=== PATIENT | female | born 1960 | race Caucasian/White ===

== ENCOUNTER 2016-07-13 08:32 | Inpatient (IN) | payer MEDICAID ==
[~2016-07-13 08:32] MED LIST: Bupivacaine 0.5%/EPINEPHrine 1:200,000 50 ML MDV ONE; Meropenem 500 MG SDV ONE
[2016-07-13] MEDS ORDERED: Naloxone 0.4 MG/ML SDV IVPUSH PRN (08:45)
[2016-07-13] MEDS ORDERED: Morphine PF 150 MG/30 ML PCA Syringe IV PRN (08:45)
[2016-07-13] MEDS ORDERED: fentaNYL 25 MCG/HR Transdermal Patch TRDERM ONE (09:15)
[2016-07-13] MEDS ORDERED: Dextrose 5%-Lactated Ringers 1,000 ML IV SCH (09:15)
[2016-07-13] MEDS: fentaNYL 25 MCG/HR Transdermal Patch TRDERM SCH (10:10)
[2016-07-13] MEDS ORDERED: ceFAZolin 2 GM in Sodium Chloride 0.9% 50 ML IV ONE (10:45)
[2016-07-13] MEDS ORDERED: ceFAZolin 2 GM in Premix Bag 1 BAG IV ONE (10:45)
[2016-07-13] MEDS ORDERED: Neostigmine Methylsulfate 1 MG/ML 5 ML Syringe ONE (11:53)
[2016-07-13] MEDS ORDERED: Propofol 200 MG/20 ML SDV ONE (11:53)
[2016-07-13] MEDS ORDERED: Dexamethasone 4 MG/ML SDV ONE (11:53)
[2016-07-13] MEDS ORDERED: Rocuronium 50 MG/5 ML Vial ONE ×2 (11:53→12:51)
[2016-07-13] MEDS ORDERED: Ondansetron 4 MG/2 ML SDV ONE (11:53)
[2016-07-13] MEDS ORDERED: fentaNYL 250 MCG/5 ML SDV ONE ×2 (11:53→14:18)
[2016-07-13] MEDS ORDERED: Linezolid 200 MG/100 ML Bag IV ONE (14:04)
[2016-07-13] MEDS ORDERED: Ondansetron 4 MG/2 ML SDV IV PRN (15:47)
[2016-07-13] MEDS ORDERED: Cyclobenzaprine 10 MG Tab PO PRN (15:48)
[2016-07-13] MEDS: CHECK FENTANYL PATCH TOP SCH ×2 (17:02→22:01)
[2016-07-13] MEDS: Dextrose 5%-Lactated Ringers 1,000 ML IV SCH (20:17)
[2016-07-13] MEDS: ceFAZolin 2 GM in Sodium Chloride 0.9% 50 ML IV SCH (20:19)
[2016-07-13] MEDS: buPROPion 100 MG Tab.SR PO SCH (22:02)
[2016-07-13] MEDS: Acetaminophen 500 MG Tab PO SCH (22:03)
[2016-07-13] MEDS: Sertraline 50 MG Tab PO SCH (22:03)
[2016-07-14] MEDS: ceFAZolin 2 GM in Sodium Chloride 0.9% 50 ML IV SCH ×2 (03:15→13:06)
[2016-07-14] MEDS: Dextrose 5%-Lactated Ringers 1,000 ML IV SCH ×3 (03:18→20:51)
[2016-07-14] MEDS ORDERED: CHECK FENTANYL PATCH DAILY TOP SCH (09:00)
[2016-07-14] MEDS: CHECK FENTANYL PATCH TOP SCH ×2 (09:56→20:56)
[2016-07-14] MEDS: Sertraline 50 MG Tab PO SCH ×2 (10:13→20:58)
[2016-07-14] MEDS: buPROPion 100 MG Tab.SR PO SCH ×2 (10:13→20:58)
[2016-07-14] MEDS: Acetaminophen/HYDROcodone 325-5 MG Tab PO PRN ×3 (10:13→19:55)
[2016-07-14] MEDS: Acetaminophen 500 MG Tab PO SCH ×3 (10:16→20:57)
--- NOTE | 2016-07-14 17:55 | PN ---
DATE OF SERVICE: 07/14/2016 SUBJECTIVE: Heather is postop day #1. She states her pain is controlled. She has been up ambulating. She has no questions or concerns. OBJECTIVE: GENERAL: Heather Small is a 56-year-old female. VITAL SIGNS: TPR is 98.2, 67, 16, and blood pressure 115/55. HEENT: Negative. NECK: Supple. HEART: Regular rate and rhythm. LUNGS: Clear. ABDOMEN: Dressings dry and intact. Abdominal binder is on. EXTREMITIES: Without peripheral edema. ASSESSMENT: Laparoscopic repair of incarcerated incisional hernia with mesh; size of mesh is 25 x 30 inches for recurrent incarcerated incisional hernia. PLAN: 1. Discontinue Cotto catheter. 2. Step 4 gastric bypass diet. 3. Discontinue GALLEY HAND and continuous pulse ox. 4. Decrease IV to 100 mL per hour. 5. [place] 5/325 mg 1 to 2 every 4 hours p.r.n. pain. 6. Good pulmonary toilet encouraged. 7. We will evaluate p.r.n. or in a.m. Carmelina Ann PA-C /[id number]
[2016-07-15] MEDS: Acetaminophen/HYDROcodone 325-5 MG Tab PO PRN ×2 (02:46→09:34)
[2016-07-15 07:09] VITALS: BP 119/63
--- NOTE | 2016-07-15 08:16 | DISCH ---
ADMISSION DIAGNOSES: Recurrent incarcerated incisional hernia, abdomen; anxiety; depression; SP Dionisio-en-Y gastric bypass surgery; B12 deficiency; history of diabetes mellitus type 2; hypercholesterolemia; hypertension; joint pain; steatosis of the liver; granulosa cell carcinoma of the ovary, unspecified; vitamin D deficiency; postoperative malabsorption. DISCHARGE DIAGNOSES: Diagnostic laparoscopy with lysis of adhesions, repair of recurrent incarcerated hernia with mesh, repair of recurrent epigastric hernia with mesh, and placement of Vicryl mesh for incarcerated recurrent incisional hernia, separate incarcerated epigastric hernia and extensive intraabdominal adhesions on 07/13/2016. HISTORY: Heather Small is a 56-year-old female with recurrent incarcerated incisional hernia. After preoperative evaluation and discussion of possible risks and possible complications, she wished to proceed with surgical procedure. HOSPITAL COURSE: Heather had her surgery on 07/13/2016. She had no operative complications. On postop day #1, she was started on a step-4 gastric bypass diet, oral pain medication. Her activity was good. Her pain was well managed. Vital signs remained stable. On postop day #2, she was able to be discharged to home. PHYSICAL EXAMINATION: GENERAL: Heather Small is a 56-year-old female. Height is 5 feet 3 inches. Weight is 157 pounds. VITAL SIGNS: TPR is 95, 73, 16, blood pressure is 119/63. HEENT: Negative. NECK: Supple. HEART: Regular rate and rhythm. LUNGS: Clear. ABDOMEN: Incision looks good. She does have 2 Kerlix rolls over the site of the hernia. Abdominal binder has been on. EXTREMITIES: Without peripheral edema. DISPOSITION: Discharged to home. CONDITION: Stable and improving. FOLLOWUP: Followup appointment with Jimi Ribera MD at [facility] on 07/21/2016 at 9:15 a.m. MEDICATIONS: New prescriptions are: 1. [place] 5/325 of 1 to 2 oral q.4 hours p.r.n. pain #50. 2. Fentanyl Duragesic patch 25 mcg to remove on 07/19/2016. 3. To resume home medication of extra-strength Tylenol 1000 mg 4 times a day p.r.n. pain, aspirin chewable 81 mg daily, atorvastatin 10 mg oral daily, calcium 600 mg twice daily, centrum Awais 30 mg oral twice daily, vitamin D3 4000 international units daily, Robitussin AC 8 to 10 mL every 4 hours, B12 of 25 mcg sublingual daily, ferrous fumarate 324 mg oral daily, glucosamine sulfate 500 mg oral daily, melatonin 10 mg oral at bedtime, sertraline/Zoloft 100 mg oral daily, vitamin B complex once each twice daily, bupropion 200 mg oral twice daily. DIET AFTER DISCHARGE: Step-4 gastric bypass diet. Drink 8 to 10 glasses of water a day. ACTIVITY: Lifting, no lifting greater than 10 pounds for 6 weeks. Driving, do not drive on pain medication, may shower. Notify provider if any fever, increased pain, swelling, redness, drainage, nausea, or vomiting. Wound incision care. Keep site clean and dry. Wound care is wear abdominal binder with pressure dressing over hernia site. Two rolls of fresh cloths for 6 weeks and then as needed. Use incentive spirometer 10 times every hour while awake for 2 weeks. No swimming until okay with Dr. Ribera, at least 8 weeks.
[2016-07-15] MEDS ORDERED: fentaNYL 25 MCG/HR Transdermal Patch TRDERM SCH (09:00)
[2016-07-15] MEDS: fentaNYL 25 MCG/HR Transdermal Patch TRDERM SCH (09:30)
[2016-07-15] MEDS: Sertraline 50 MG Tab PO SCH (09:31)
[2016-07-15] MEDS: Acetaminophen 500 MG Tab PO SCH (09:31)
[2016-07-15] MEDS: buPROPion 100 MG Tab.SR PO SCH (09:31)
[2016-07-15] MEDS: CHECK FENTANYL PATCH TOP SCH (09:31)
--- NOTE | 2016-07-23 10:00 | OR ---
DATE OF PROCEDURE: 07/13/2016 PREOPERATIVE DIAGNOSIS: Incarcerated recurrent incisional hernia. POSTOPERATIVE DIAGNOSES: 1. Incarcerated recurrent incisional hernia. 2. Separate incarcerated epigastric hernia. 3. Extensive intraabdominal adhesions. OPERATIVE PROCEDURE: 1. Diagnostic laparoscopy with lysis of adhesions. a. Repair of incarcerated recurrent incisional hernia with mesh (47779). b. Repair of incarcerated epigastric hernia with mesh (40194). c. Placement of Vicryl mesh to displace small bowel and other viscera from pelvic abdominal wall to limit recurrent adhesion formation (63050). ANESTHESIA: General. INDICATION FOR PROCEDURE: This is a 56-year-old female presenting with recurrent incarcerated incisional hernia. This was a broad hernia across the center of the abdomen. Plan is to proceed with laparoscopic or if necessary open repair. Potential risks including bleeding, infection, injury to underlying viscera, possibility of the hernia recurring as well as possibility of cardiopulmonary, septic, or hemorrhagic complications leading to were discussed, and the patient wishes to proceed. DETAILS OF PROCEDURE: The patient was taken to the operating room. After general endotracheal anesthesia was induced, a Cotto catheter was inserted and the abdomen prepped. Beginning in the left lateral mid abdomen, a transverse incision was made and the peritoneal cavity entered under direct vision with an Optiview trocar, inflated to 15 mmHg pressure with CO2. The laparoscope was then reinserted. No underlying trocar insertion site injuries were seen. Following this, eventually four additional 5 mm trocar was placed across the upper abdomen and then to the right lateral abdominal wall. The patient was noted to have quite extensive adhesions. These were eventually taken down with means of a Harmonic scalpel as well as some sharp dissection. There was some incarcerated omentum within the hernia, which was taken down as part of the process. The patient was noted to have a separate epigastric hernia that had some of the falciform ligament as well as omentum incarcerated within it as well. This area was likewise reduced and the falciform ligament divided and from the abdominal wall. Once these adhesions were completed, the decision was made to proceed with the mesh repair. It was notable that on each side of the larger incisional hernia, there was some mesh in the abdominal wall. Given this using 0- Ethibond sutures and the tie knot device this defect was initially closed with interrupted sutures. This was closed tight enough that the fascia was opposed to the edges on the opposite sides of the hernia, but not so much that it would not allow drainage of fluid out of the overlying hernia sac. Once this phase had been completed, a Ventralight ST hernia mesh with the balloon positioning system was selected. This was a 25 x 30 cm oval segment. At the 2 ends of the long axis of the mesh, 2-0 Vicryl sutures were placed. The mesh was then placed with antibiotic-containing saline solution. This was then rolled up and taken out through the 12 mm trocar site and into the peritoneal cavity. At the two locations at the far ends of the mesh which had been premarked the sutures were pulled up, thus fixing the mesh in general orientation, the long axis in the vertical midline providing the best coverage of those hernias. The balloon catheter was then also pulled up through a separate stab wound and the balloon then inflated up against the abdominal wall. Using the AbsorbaTack, multiple tacks were then placed circumferentially around the mesh to the abdominal wall and then also multiple tacks placed across the center of the mesh as well. This appeared to satisfactorily repair the area of concern and the balloon catheter was then deflated and withdrawn. To limit recurrent adhesion formation, the 12- inch segment of Vicryl mesh was then placed across the abdomen and from there into the pelvic area to limit recurrent adhesion formation between the viscera and the abdominal pelvic wall with no further problems noted. The trocars were removed. The fascia at the 12 mm site was closed with 0 Vicryl stitch and the skin with 4-0 Vicryl skin stitch. Dressing was applied. The patient was taken to the recovery room in satisfactory condition. Jimi Ribera MD /[id number]
== END 2016-07-15 11:35 | disposition home or self-care (01) | DRG 354 ==
LOC: JP.SDSSCHI 08:32 → JP.SDS 08:32 → EDSTATUS 10:15 → JP.2SS 15:34
PROVIDERS: ADMIT Surgery; ATTEND Surgery
PROC: 3E0M05Z Introduction of Adhesion Barrier into Peritoneal Cavity, Open Approach (ICD-10-PCS; principal; 2016-07-13)
PROC: 0WUF4JZ Supplement Abdominal Wall with Synthetic Substitute, Percutaneous Endoscopic Approach (ICD-10-PCS; principal; 2016-07-13)
DX: K43.0 Incisional hernia with obstruction, without gangrene (principal); K91.2 Postsurgical malabsorption, not elsewhere classified; K43.6 Other and unspecified ventral hernia with obstruction, without gangrene; Z98.84 Bariatric surgery status; Z98.0 Intestinal bypass and anastomosis status; F32.9 Major depressive disorder, single episode, unspecified; F41.9 Anxiety disorder, unspecified; E53.8 Deficiency of other specified B group vitamins; Z86.39 Personal history of other endocrine, nutritional and metabolic disease; E78.00 Pure hypercholesterolemia, unspecified; I10 Essential (primary) hypertension; M25.50 Pain in unspecified joint; K76.0 Fatty (change of) liver, not elsewhere classified; Z85.43 Personal history of malignant neoplasm of ovary; E55.9 Vitamin D deficiency, unspecified; K66.0 Peritoneal adhesions (postprocedural) (postinfection)
CPT/HCPCS: 94762; A9270-GY; C1781; J0690; J1100; J2020; J2185; J2270; J2405; J2704; J3010; J7040; J7042; J7050

== ENCOUNTER 2019-04-12 10:20 | Day surgery (SDC) | payer BC, OTHER ==
[~2019-04-12 10:20] MED LIST changes: -Bupivacaine 0.5%/EPINEPHrine 1:200,000 50 ML MDV ONE; -Meropenem 500 MG SDV ONE; +Midazolam 1 MG/ML 2 ML SDV ONE; +Propofol 200 MG/20 ML SDV ONE; +fentaNYL 100 MCG/2 ML SDV ONE
[2019-04-12] MEDS ORDERED: Sodium Chloride 0.9% 1,000 ML IV SCH (11:00)
[2019-04-12 13:19] VITALS: BP 101/66; PULSE 49
--- NOTE | 2019-04-13 08:36 | OR ---
DATE OF PROCEDURE: 04/12/2019 SURGEON: Jonathan Sheridan MD PROCEDURE: Colonoscopy. FINDINGS: Sigmoid colon polyp, approximately 5 mm, completely removed using cold biopsy forceps. COMPLICATIONS: None. TRIM INSTALLER: None. ANESTHESIA: MAC. RISKS: Risks, benefits, alternatives, and limitations including, but not limited to infection, bleeding, and perforation were explained to the patient. PREOPERATIVE DIAGNOSIS: Screening colonoscopy. POSTOPERATIVE DIAGNOSIS: Screening colonoscopy. PROCEDURE IN DETAIL: The patient was placed in left lateral decubitus position. Digital rectal exam was performed without abnormality. The scope was introduced atraumatically to the ileocecal valve. The scope was brought back through the ascending, transverse, descending colon, and retroflexed. No evidence of old or new blood. No masses. The aforementioned polyps were identified and completely removed. No abnormalities on retroflexion. The patient tolerated the procedure well. Jonathan Sheridan MD /[id number]
== END 2019-04-12 13:35 | disposition home or self-care (01) ==
LOC: JP.SDS 10:20
PROVIDERS: ATTEND Surgery
DX: Z12.11 Encounter for screening for malignant neoplasm of colon (principal); K63.5 Polyp of colon; K90.9 Intestinal malabsorption, unspecified; E78.5 Hyperlipidemia, unspecified
CPT/HCPCS: 45380; J2250; J2704; J3010; J7030

== ENCOUNTER 2019-08-14 11:58 | Emergency (ER) | payer OTHER ==
[2019-08-14 12:23] VITALS: BP 123/65; PULSE 57
[2019-08-14] MEDS ORDERED: Ketorolac 30 MG/ML SDV IM ONE (12:51)
--- NOTE | 2019-08-14 12:56 | EDM.PDOC ---
ED HPI GENERAL MEDICAL PROBLEM - General Chief Complaint: Respiratory Problem Stated Complaint: BREATHING ISSUES Time Seen by Provider: 08/14/19 12:35 Source of Information: Reports: Patient, Old Records, RN History Limitations: Reports: No Limitations - History of Present Illness INITIAL COMMENTS - FREE TEXT/NARRATIVE: 59 yo female nonsmoker presents with mild anterior chest discomfort worse with pressing on her chest. No SOB, cough, or fever. No new calf pain or LE edema. No self tx. Called the clinic and was told to come to the ER. Onset: Today Onset Date: 08/14/19 Duration: Hour(s):, Constant Location: Reports: Chest Quality: Reports: Dull Severity: Mild Improves with: Reports: None Worsens with: Reports: Other (pressing on chest wall) Context: Reports: Other (see HPI) Associated Symptoms: Reports: Chest Pain (chest wall). Denies: Cough, Diaphoresis, Fever/Chills, Shortness of Breath Treatments CARVER HAND: Reports: Other (see below) (none) Upper Chest Pain Score (Numeric/FACES): 1 - Related Data Allergies Allergy/AdvReac Type Severity Reaction Status Date / Time venom-honey bee Allergy Severe Anaphylactic Verified 08/14/19 12:16 [bee venom (honey bee)] Shock ceresin [From Eucerin] Allergy Hives Verified 08/14/19 12:16 emollient combination no.33 Allergy Hives Verified 08/14/19 12:16 [From Eucerin] hydromorphone Allergy Other Verified 08/14/19 12:16 isopropyl myristate Allergy Hives Verified 08/14/19 12:16 [From Eucerin] lanolin alcohols Allergy Hives Verified 08/14/19 12:16 [From Eucerin] mineral oil [From Eucerin] Allergy Hives Verified 08/14/19 12:16 petrolatum,white Allergy Hives Verified 08/14/19 12:16 [From Eucerin] soap [From Eucerin] Allergy Hives Verified 08/14/19 12:16 Sulfa (Sulfonamide Allergy Rash Verified 08/14/19 12:16 Antibiotics) water [From Eucerin] Allergy Hives Verified 08/14/19 12:16 bacitracin AdvReac Blisters Verified 08/14/19 12:16 niacin AdvReac Abdominal Verified 08/14/19 12:16 Pain Cfixvmc-Nlu-Blr Reductase AdvReac Muscle Verified 08/14/19 12:16 Inhibitor Weakness BLISTEX AdvReac Blisters Uncoded 08/14/19 12:16 CARMEX AdvReac Blisters Uncoded 08/14/19 12:16 Home Meds: Home Meds Sertraline [Zoloft] 100 mg PO BID 09/10/13 [History] Vitamin B Complex [B Complex] 1 each PO BID 09/10/13 [History] Acetaminophen [Tylenol Extra Strength] 1,000 mg PO QID PRN 06/22/14 [History] Ferrous Fumarate [Ferrocite] 324 mg PO Q48H 06/22/14 [History] Melatonin 10 mg PO BEDTIME 06/22/14 [History] Calcium 600 mg PO BID 09/03/15 [History] Centrum Jr/Extra Calcium 30 mg PO BID 07/09/16 [History] Cyanocobalamin (Vitamin B12) [Vitamin B12] 2,500 mcg SL DAILY 07/09/16 [History] Glucosamine [Glucosamine Sulfate] 500 mg PO DAILY 07/09/16 [History] Cholecalciferol (Vitamin D3) [Vitamin D3] 4,000 unit PO DAILY 07/13/16 [History] [place]-3 Fatty Acids [Maxepa] 2,000 mg PO DAILY 04/10/19 [History] Past Medical History HEENT History: Reports: Cataract, Impaired Vision Cardiovascular History: Reports: High Cholesterol, Hypertension Respiratory History: Reports: Bronchitis, Recurrent Other Respiratory History: persistent cough 2016 Gastrointestinal History: Reports: Bowel Obstruction Other Gastrointestinal History: elevated liver function Genitourinary History: Reports: None ASSISTANT CASINO SHIFT MANAGER History: Reports: Polycystic Ovaries, , Prolapsed Uterus, Spontaneous Other ASSISTANT CASINO SHIFT MANAGER History: ovarian CA Musculoskeletal History: Reports: Arthritis, Back Pain, Chronic, Fracture, Neck Pain, Chronic, Osteoarthritis Other Musculoskeletal History: right wrist Neurological History: Reports: Concussion, Seizure Psychiatric History: Reports: Anxiety, Depression, OCD, PTSD Endocrine/Metabolic History: Reports: Diabetes, Type II, Obesity/BMI 30+, Vitamin D Deficiency Other Endocrine/Metabolic History: no longer diabetic Hematologic History: Reports: Anemia, B12 Deficiency, Blood Transfusion(s), Iron Deficiency Oncologic (Cancer) History: Reports: Ovarian Dermatologic History: Reports: None - Infectious Disease History Infectious Disease History: Reports: Chicken Pox, Measles, Mumps - Past Surgical History Head Surgeries/Procedures: Reports: None HEENT Surgical History: Reports: Cataract Surgery, Oral Surgery Cardiovascular Surgical History: Reports: None Respiratory Surgical History: Reports: None GI Surgical History: Reports: Bariatric Procedure, Cholecystectomy, Colonoscopy , Hernia, Abdominal, Lysis of Adhesions, Small Bowel Female Surgical History: Reports: D&C, Hysterectomy Endocrine Surgical History: Reports: None Neurological Surgical History: Reports: None Musculoskeletal Surgical History: Reports: None Oncologic Surgical History: Reports: None Dermatological Surgical History: Reports: None Social & Family History - Family History Family Medical History: Noncontributory - Tobacco Use Smoking Status *Q: Never Smoker Second Hand Smoke Exposure: No - Caffeine Use Caffeine Use: Reports: None - Recreational Drug Use Recreational Drug Use: No - Living Situation & Occupation Living situation: Reports: , Alone ED ROS GENERAL - Review of Systems Review Of Systems: See Below Constitutional: Reports: No Symptoms HEENT: Reports: No Symptoms Respiratory: Reports: No Symptoms. Denies: Shortness of Breath, Wheezing, Pleuritic Chest Pain, Cough, Sputum, Hemoptysis Cardiovascular: Reports: Chest Pain (chest wall) GI/Abdominal: Reports: No Symptoms : Reports: No Symptoms Musculoskeletal: Reports: Other (chest wall tenderness) Skin: Reports: No Symptoms Neurological: Reports: No Symptoms ED EXAM, GENERAL - Physical Exam Exam: See Below Exam Limited By: No Limitations General Appearance: Alert, WD/WN, No Apparent Distress Eye Exam: Bilateral Eye: Normal Inspection Ears: Normal External Exam, Normal Canal, Hearing Grossly Normal Ear Exam: Bilateral Ear: Auricle Normal, Canal Normal Nose: Normal Inspection, No Blood Throat/Mouth: Normal Inspection, Normal Lips, Normal Oropharynx, Normal Voice, No Airway Compromise Head: Atraumatic, Normocephalic Neck: Normal Inspection Respiratory/Chest: No Respiratory Distress, Lungs Clear, Normal Breath Sounds, No Accessory Muscle Use, Other (anterior chest wall tenderness). No: Chest Non- Tender Cardiovascular: Regular Rate, Rhythm, No Edema GI/Abdominal: Normal Bowel Sounds, Soft, Non-Tender, No Distention Back Exam: Normal Inspection. No: CVA Tenderness (R), CVA Tenderness (L) Extremities: Normal Inspection, Normal Range of Motion, Non-Tender, No Pedal Edema Neurological: Alert, Oriented, CN II-XII Intact, Normal Cognition, No Motor/ Sensory Deficits Psychiatric: Normal Affect, Normal Mood Skin Exam: Warm, Dry, Intact, Normal Color, No Rash EKG INTERPRETATION EKG Date: 08/14/19 Time: 13:00 Rhythm: NSR Rate (Beats/Min): 52 [place]: Normal P-Wave: Present QRS: RBBB ST-T: Normal QT: Normal Comparison: NA - No Prior EKG Course - Vital Signs Last Recorded V/S: Last Vital Signs Temp 36.6 C 08/14/19 12:13 Pulse 57 L 08/14/19 12:13 Resp 16 08/14/19 12:13 BP 123/65 08/14/19 12:13 Pulse Ox 95 08/14/19 12:13 - Orders/Labs/Meds Orders: Active Orders 24 hr Category Date Time Status EKG Documentation Completion [RC] ASDIRECTED Care 08/14/19 12:51 Active EKG 12 Lead [EK] Routine Ther 08/14/19 12:51 Ordered Meds: Medications Discontinued Medications Generic Name Dose Route Start Last Admin Trade Name Freq PRN Reason Stop Dose Admin Ketorolac Tromethamine 30 mg 08/14/19 12:51 08/14/19 12:57 Toradol IM 08/14/19 12:52 30 mg ONETIME ONE Administration Departure - Departure Time of Disposition: 13:25 Disposition: Home, Self-Care 01 Condition: Good Clinical Impression: Chest wall pain - Discharge Information *PRESCRIPTION DRUG MONITORING PROGRAM REVIEWED*: No *COPY OF PRESCRIPTION DRUG MONITORING REPORT IN PATIENT TONY: No Instructions: Nonspecific Chest Pain, Adult, [id number] Referrals: PCP,None [Primary Care Provider] - Forms: ED Department Discharge Additional Instructions: Acetaminophen 1000 mg every 6 hrs as needed for a few days. Return for fever, shortness of breath, nausea, or radiation of the pain. Sepsis Event Note - Evaluation Sepsis Screening Result: No Definite Risk - Focused Exam Vital Signs: Vital Signs Temp Pulse Resp BP Pulse Ox 08/14/19 12:13 36.6 C 57 L 16 123/65 95 08/14/19 12:11 36.6 C 57 L 16 123/65 95 Date Exam was Performed: 08/14/19 Time Exam was Performed: 13:23 - My Orders Last 24 Hours: My Active Orders 08/14/19 12:51 EKG Documentation Completion [RC] ASDIRECTED EKG 12 Lead [EK] Routine - Assessment/Plan Last 24 Hours: My Active Orders 08/14/19 12:51 EKG Documentation Completion [RC] ASDIRECTED EKG 12 Lead [EK] Routine
== END 2019-08-14 13:39 | disposition home or self-care (01) ==
LOC: JP.ED 11:58
DX: R07.89 Other chest pain (principal); F41.9 Anxiety disorder, unspecified; F32.9 Major depressive disorder, single episode, unspecified; E11.9 Type 2 diabetes mellitus without complications; I10 Essential (primary) hypertension; E66.9 Obesity, unspecified; Z68.31 Body mass index [BMI] 31.0-31.9, adult; Z91.030 Bee allergy status; Z88.5 Allergy status to narcotic agent; Z88.2 Allergy status to sulfonamides; Z88.1 Allergy status to other antibiotic agents; Z88.8 Allergy status to other drugs, medicaments and biological substances
CPT/HCPCS: 93005; 96372; 99284; J1885

== ENCOUNTER → 2020-06-09 | Day surgery (SDC) | payer OTHER ==
[~2020-06-09] MED LIST changes: +Acetaminophen/HYDROcodone 325-5 MG Tab PO ONE; +Bupivacaine 0.5% 50 ML MDV ONE; +Dexamethasone 4 MG/ML SDV ONE; +Glycopyrrolate 0.2 MG/ML 5 ML MDV ONE; +Lactated Ringers 1,000 ML IV SCH; -Midazolam 1 MG/ML 2 ML SDV ONE; +Neostigmine Methylsulfate 1 MG/ML 5 ML Syringe ONE; +Ondansetron 4 MG/2 ML SDV ONE; +Rocuronium 50 MG/5 ML Vial ONE; +Succinylcholine 200 MG/10 ML MDV ONE; +ceFAZolin 2 GM in Premix Bag 1 BAG IV ONE; -fentaNYL 100 MCG/2 ML SDV ONE; +fentaNYL 250 MCG/5 ML SDV ONE
[2020-06-09 15:22] VITALS: PULSE 55
--- NOTE | 2020-06-09 15:25 | US ---
VL Duplex Lwr Ext Veins Ltd Rt INDICATION: r/o blood clot FINDINGS: Ultrasound examination of the right lower extremity using Doppler and compressive technique demonstrates that the common femoral, femoral, and popliteal veins are patent, and negative for thrombus. The calf veins were segmentally visualized and are negative where seen. IMPRESSION: Negative for deep venous thrombosis.
[2020-06-09 15:37] VITALS: BP 171/75
--- NOTE | 2020-06-09 19:24 | OR ---
DATE OF PROCEDURE: 06/09/2020 SURGEON: Sixto De La Torre DPM HOUSE REPAIRER: None. PREOPERATIVE DIAGNOSIS: Implant failure, right foot. POSTOPERATIVE DIAGNOSIS: Implant failure, right foot. PROCEDURE: Removal of tendon anchor that loosened with reattachment of tibialis posterior tendon to the distal talar head. ANESTHESIA: General. HEMOSTASIS: Obtained with an ankle tourniquet on the right ankle at 250 mmHg. ESTIMATED BLOOD LOSS: 5 mL. MATERIALS: One Spruceling 5.5 mm tendon anchor was used. INJECTABLES: A total of 10 mL of Marcaine 0.5% plain was injected at the end of the procedure. PATHOLOGY: None. CONDITION: Stable. INDICATIONS FOR SURGERY: Detached tibialis posterior tendon on the right foot from the navicular, status post flatfoot reconstruction, so we needed to reattach the tibialis posterior tendon to the medial side of the foot. PROCEDURE IN DETAIL: The patient was brought to the operating room, placed on the operating table in supine position. Following general anesthesia, the right leg was scrubbed, prepped, and draped in the usual aseptic manner and raised to 60 degrees for hemostasis and exsanguinated using Esmarch bandage. Tourniquet was inflated. Foot was lowered to the table. Skin incision was made on the medial aspect of the right foot through the incision that was made 2 weeks ago. Sutures were removed. Skin edges were opened and we carefully dissected through the incision down to the level of the tibialis posterior tendon which was identified. The old tendon anchor was identified and removed. We then performed a whipstitch into the distal aspect of the tibialis posterior tendon and then used a whipstitch to put tension on the tibialis posterior tendon to help stretch out the muscle belly of the tibialis posterior tendon, and then, we, through fluoroscopic guidance, identified the distal aspect of the talus. Since the navicular is a very small bone and since it is fused to the talus, instead, we will attach the tibialis posterior tendon to the plantar medial aspect of the talar head in order to reattach it. We placed our 5.5 mm tendon anchor into the talar head and then sutured the tibialis posterior tendon to it with 4 sutures that were attached to the tendon anchor. We then checked and made sure that the tendon anchor was properly seated prior to attaching the tendon and tagged the tendon down, and then we tied the tibialis posterior tendon down to the tendon anchor and moved to the foot and then the tendon moved, but did not detach the tendon anchor. The tibialis posterior tendon sheath was closed. The incision was flushed out with copious amounts of sterile saline. Subcutaneous closure was done with 3-0 Vicryl and skin closure with 3-0 nylon in a horizontal mattress configuration. Postoperative injection was given. The foot was dressed with Xeroform, 4 x 4s, and Kerlix, and prior to applying the posterior splint, a venous ultrasound of the right leg was performed to rule out blood clot because the patient had complained of some calf pain prior to surgery. The patient was then placed in a posterior splint on the right leg and returned to the recovery room with vital signs stable and vascular status intact to both feet. The patient was told to rest, ice, and elevate the right leg; maintain strict nonweightbearing on the right leg; and return to clinic with Dr. De La Torre in 1 week. Since there was a small amount of erythema around one of the incisions, we did prescribe Keflex 500 mg 1 tab p.o. t.i.d. x10 days, dispensed #30. The patient was told to go to the emergency room immediately if she had any nausea, vomiting, fever, chills, chest pain, calf pain, or difficulty breathing. The patient will follow up with Dr. De La Torre in 1 week. Sixto De La Torre DPM /[id number]
== END ==
LOC: JP.SDS 11:54
PROVIDERS: ATTEND Podiatrist Foot & Ankle Surgery
DX: T84.223A Displacement of internal fixation device of bones of foot and toes, initial encounter (principal); E11.9 Type 2 diabetes mellitus without complications; I10 Essential (primary) hypertension; E66.9 Obesity, unspecified; E53.8 Deficiency of other specified B group vitamins; E55.9 Vitamin D deficiency, unspecified; I45.10 Unspecified right bundle-branch block; R00.1 Bradycardia, unspecified; G47.33 Obstructive sleep apnea (adult) (pediatric); Z88.2 Allergy status to sulfonamides; Z88.8 Allergy status to other drugs, medicaments and biological substances; Z91.018 Allergy to other foods; Z91.048 Other nonmedicinal substance allergy status; Z88.5 Allergy status to narcotic agent; Z91.030 Bee allergy status; Z91.09 Other allergy status, other than to drugs and biological substances; Z79.899 Other long term (current) drug therapy; Z98.890 Other specified postprocedural states; Z68.33 Body mass index [BMI] 33.0-33.9, adult
CPT/HCPCS: 76000; 93971-26; 93971-RT; A9270-GY; C1713; J0330; J0690; J1100; J2405; J2704; J2710; J3010; J3490; J7120

== ENCOUNTER 2020-09-20 15:27 | Emergency (ER) | payer OTHER ==
[2020-09-20 16:35] VITALS: BP 141/66; PULSE 74
[2020-09-20] MEDS ORDERED: Doxycycline 100 MG Cap PO ONE (17:57)
--- NOTE | 2020-09-20 18:08 | EDM.PDOC ---
ED HPI GENERAL MEDICAL PROBLEM - General Chief Complaint: General Stated Complaint: FLU? Time Seen by Provider: 09/20/20 17:50 Source of Information: Reports: Patient, RN History Limitations: Reports: No Limitations - History of Present Illness INITIAL COMMENTS - FREE TEXT/NARRATIVE: 60-year-old female with generalized complaints including frontal headache which is unusual for her, body pain, fever and chills, all ongoing for the last 2 to 3 days. She has had 2 Covid shots completed back in May. She has had 3 tick bites that she knows about in recent days or weeks and one she did not see. She denies any rash. She knows about Lyme disease and the prevalence in the area. She is eating all right bowel and urine function is okay and she does not have any other issue other than generalized weakness and trouble as she is recently gotten back to work, having enough energy. I discussed with her a work-up for Lyme disease versus Covid versus just treating the how she does and she elects to go for the treatment only - Related Data Allergies Allergy/AdvReac Type Severity Reaction Status Date / Time venom-honey bee Allergy Severe Anaphylactic Verified 09/20/20 16:34 [bee venom (honey bee)] Shock ceresin [From Eucerin] Allergy Hives Verified 09/20/20 16:34 emollient combination no.33 Allergy Hives Verified 09/20/20 16:34 [From Eucerin] hydromorphone Allergy Other Verified 09/20/20 16:34 isopropyl myristate Allergy Hives Verified 09/20/20 16:34 [From Eucerin] lanolin alcohols Allergy Hives Verified 09/20/20 16:34 [From Eucerin] mineral oil [From Eucerin] Allergy Hives Verified 09/20/20 16:34 petrolatum,white Allergy Hives Verified 09/20/20 16:34 [From Eucerin] soap [From Eucerin] Allergy Hives Verified 09/20/20 16:34 Sulfa (Sulfonamide Allergy Rash Verified 09/20/20 16:34 Antibiotics) water [From Eucerin] Allergy Hives Verified 09/20/20 16:34 bacitracin AdvReac Blisters Verified 09/20/20 16:34 niacin AdvReac Abdominal Verified 09/20/20 16:34 Pain Icfpnaq-Rkt-Zin Reductase AdvReac Muscle Verified 09/20/20 16:34 Inhibitor Weakness BLISTEX AdvReac Blisters Uncoded 09/20/20 16:34 CARMEX AdvReac Blisters Uncoded 09/20/20 16:34 Home Meds: Home Meds Sertraline [Zoloft] 100 mg PO BID 09/10/13 [History] Vitamin B Complex [B Complex] 1 each PO DAILY 09/10/13 [History] Acetaminophen [Tylenol Extra Strength] 1,000 mg PO TID 06/22/14 [History] Melatonin 10 mg PO BEDTIME 06/22/14 [History] Calcium 500 mg PO BID 09/03/15 [History] Centrum Jr/Extra Calcium 30 mg PO BID 07/09/16 [History] Cyanocobalamin (Vitamin B12) [Vitamin B12] 2,500 mcg SL DAILY 07/09/16 [History] Cholecalciferol (Vitamin D3) [Vitamin D3] 5,000 unit PO BID 07/13/16 [History] [place]-3 Fatty Acids [Maxepa] 500 mg PO DAILY 04/10/19 [History] Ascorbic Acid [C-1000] 1,000 mg PO DAILY 06/05/20 [History] Diclofenac Sodium [Voltaren 1% Gel] 1 applic TOP QID PRN 06/05/20 [History] EPINEPHrine [Epipen 2-Maxim] 0.3 mg IJ ASDIRECTED 06/05/20 [History] hydrOXYzine pamoate [Vistaril] 25 mg PO TID PRN 06/05/20 [History] traZODone HCl [Trazodone HCl] 12.5 - 100 mg PO BEDTIME 06/05/20 [History] Magnesium Oxide [Magnesium] 500 mg PO DAILY 06/09/20 [History] Past Medical History HEENT History: Reports: Cataract, Impaired Vision Cardiovascular History: Reports: High Cholesterol, Hypertension Respiratory History: Reports: Bronchitis, Recurrent Other Respiratory History: persistent cough 2016 Gastrointestinal History: Reports: Bowel Obstruction, Other (See Below) Other Gastrointestinal History: elevated liver function Genitourinary History: Reports: None PLANT PRODUCTION MANAGER History: Reports: Polycystic Ovaries, , Prolapsed Uterus, Spontaneous Other PLANT PRODUCTION MANAGER History: ovarian CA Musculoskeletal History: Reports: Arthritis, Back Pain, Chronic, Fracture, Neck Pain, Chronic, Osteoarthritis Other Musculoskeletal History: right wrist Neurological History: Reports: Concussion, Seizure Psychiatric History: Reports: Anxiety, Depression, OCD, PTSD Endocrine/Metabolic History: Reports: Diabetes, Type II, Obesity/BMI 30+, Vitamin D Deficiency, Other (See Below) Other Endocrine/Metabolic History: no longer diabetic Hematologic History: Reports: Anemia, B12 Deficiency, Blood Transfusion(s), Iron Deficiency Oncologic (Cancer) History: Reports: Ovarian Dermatologic History: Reports: None - Infectious Disease History Infectious Disease History: Reports: Chicken Pox, Measles, Mumps - Past Surgical History Head Surgeries/Procedures: Reports: None HEENT Surgical History: Reports: Cataract Surgery, Oral Surgery Other HEENT Surgeries/Procedures: wears flipper on front teeth Cardiovascular Surgical History: Reports: None, Other (See Below) Other Cardiovascular Surgeries/Procedures: angiogram Respiratory Surgical History: Reports: None GI Surgical History: Reports: Bariatric Procedure, Cholecystectomy, Colonoscopy, Hernia, Abdominal, Hernia Repair/Other, Lysis of Adhesions, Small Bowel Female Surgical History: Reports: D&C, Hysterectomy, Salpingo-Oophorectomy Endocrine Surgical History: Reports: None Neurological Surgical History: Reports: None Musculoskeletal Surgical History: Reports: Other (See Below) Other Musculoskeletal Surgeries/Procedures:: right foot surgery Oncologic Surgical History: Reports: None Dermatological Surgical History: Reports: Other (See Below) Social & Family History - Family History Family Medical History: No Pertinent Family History - Tobacco Use Tobacco Use Status *Q: Never Tobacco User Second Hand Smoke Exposure: No - Caffeine Use Caffeine Use: Reports: None - Recreational Drug Use Recreational Drug Use: No - Living Situation & Occupation Living situation: Reports: , Alone ED ROS GENERAL - Review of Systems Review Of Systems: Comprehensive ROS is negative, except as noted in HPI. ED EXAM, GENERAL - Physical Exam Exam: See Below Free Text/Narrative:: Alert cooperative female sitting on the gurney in no real distress with good vital signs. HEENT shows eyes ears nose and throat are normal Neck supple normal range of motion Regular rate and rhythm Soft active bowel sounds Extremities are normal with no rash Logic physiologic urine tone Exam Limited By: No Limitations Course - Vital Signs Last Recorded V/S: Last Vital Signs Temp 36.7 C 09/20/20 16:49 Pulse 74 09/20/20 16:49 Resp 16 09/20/20 16:49 BP 141/66 H 09/20/20 16:49 Pulse Ox 99 09/20/20 16:49 - Orders/Labs/Meds Meds: Medications Discontinued Medications Generic Name Dose Route Start Last Admin Trade Name No PRN Reason Stop Dose Admin Doxycycline Hyclate 100 mg 09/20/20 17:57 Doxycycline 100 Mg Cap PO 09/20/20 17:58 ONETIME ONE Departure - Departure Time of Disposition: 18:10 Disposition: Home, Self-Care 01 Condition: Good Clinical Impression: Lyme disease, acute - Discharge Information Referrals: PCP,None [Primary Care Provider] - Forms: ED Department Discharge Sepsis Event Note (ED) - Evaluation Sepsis Screening Result: No Definite Risk - Focused Exam Vital Signs: Vital Signs Temp Pulse Resp BP Pulse Ox 09/20/20 16:49 36.7 C 74 16 141/66 H 99 09/20/20 16:33 36.7 C 74 16 141/66 H 99
== END 2020-09-20 18:22 | disposition home or self-care (01) ==
LOC: JP.ED 15:27
DX: A69.20 Lyme disease, unspecified (principal); E78.00 Pure hypercholesterolemia, unspecified; I10 Essential (primary) hypertension; E11.9 Type 2 diabetes mellitus without complications; E66.9 Obesity, unspecified; Z68.30 Body mass index [BMI] 30.0-30.9, adult; Z88.2 Allergy status to sulfonamides; Z88.5 Allergy status to narcotic agent; Z91.030 Bee allergy status; Z88.1 Allergy status to other antibiotic agents; Z88.8 Allergy status to other drugs, medicaments and biological substances
CPT/HCPCS: 99283; A9270

== ENCOUNTER 2021-02-03 20:04 | Emergency (ER) | payer OTHER ==
[2021-02-03 22:19] VITALS: BP 155/81; PULSE 63
--- NOTE | 2021-02-03 23:42 | EDM.PDOC ---
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 She went home and she developed severe lower abdomanal pain. She had a normal bm today. This was not bloody. She has had a gastric bypass in the past. Onset: Today, Sudden Duration: Hour(s): Location: Reports: Abdomen, Other (pt has a known fistula in the vagina. ) Associated Symptoms: Reports: Loss of Appetite Abdominal Pain Score (Numeric/FACES): 2 - Related Data Allergies Allergy/AdvReac Type Severity Reaction Status Date / Time venom-honey bee Allergy Severe Anaphylactic Verified 02/03/21 22:15 [bee venom (honey bee)] Shock ceresin [From Eucerin] Allergy Hives Verified 02/03/21 22:15 emollient combination no.33 Allergy Hives Verified 02/03/21 22:15 [From Eucerin] hydromorphone Allergy Other Verified 02/03/21 22:15 isopropyl myristate Allergy Hives Verified 02/03/21 22:15 [From Eucerin] lanolin alcohols Allergy Hives Verified 02/03/21 22:15 [From Eucerin] mineral oil [From Eucerin] Allergy Hives Verified 02/03/21 22:15 petrolatum,white Allergy Hives Verified 02/03/21 22:15 [From Eucerin] soap [From Eucerin] Allergy Hives Verified 02/03/21 22:15 Sulfa (Sulfonamide Allergy Rash Verified 02/03/21 22:15 Antibiotics) water [From Eucerin] Allergy Hives Verified 02/03/21 22:15 bacitracin AdvReac Blisters Verified 02/03/21 22:15 niacin AdvReac Abdominal Verified 02/03/21 22:15 Pain Pnwzyei-[id number] Reductase AdvReac Muscle Verified 02/03/21 22:15 Inhibitor Weakness BLISTEX AdvReac Blisters Uncoded 02/03/21 22:15 [place]MEX AdvReac Blisters Uncoded 02/03/21 22:15 Home Meds: Home Meds Sertraline [Zoloft] 100 mg PO BID 09/10/13 [History] Vitamin B Complex [B Complex] 1 each PO DAILY 09/10/13 [History] Acetaminophen [Tylenol Extra Strength] 1,000 mg PO TID 06/22/14 [History] Melatonin 10 mg PO BEDTIME 06/22/14 [History] Calcium 500 mg PO BID 09/03/15 [History] Centrum Jr/Extra Calcium 30 mg PO BID 07/09/16 [History] Cyanocobalamin (Vitamin B12) [Vitamin B12] 2,500 mcg SL DAILY 07/09/16 [History] Cholecalciferol (Vitamin D3) [Vitamin D3] 5,000 unit PO BID 07/13/16 [History] [place]-3 Fatty Acids [Maxepa] 500 mg PO DAILY 04/10/19 [History] Ascorbic Acid [C-1000] 1,000 mg PO DAILY 06/05/20 [History] Diclofenac Sodium [Voltaren 1% Gel] 1 applic TOP QID PRN 06/05/20 [History] EPINEPHrine [Epipen 2-Maxim] 0.3 mg IJ ASDIRECTED 06/05/20 [History] hydrOXYzine pamoate [Vistaril] 25 mg PO TID PRN 06/05/20 [History] traZODone HCl [Trazodone HCl] 12.5 - 100 mg PO BEDTIME 06/05/20 [History] Magnesium Oxide [Magnesium] 500 mg PO DAILY 06/09/20 [History] Past Medical History HEENT History: Reports: Allergic Rhinitis, Cataract, Impaired Vision Cardiovascular History: Reports: Angina, High Cholesterol, Hypertension Respiratory History: Reports: Bronchitis, Recurrent Other Respiratory History: persistent cough 2016 Gastrointestinal History: Reports: Bowel Obstruction, Colon Polyp, Other (See Below) Other Gastrointestinal History: elevated liver function Genitourinary History: Reports: None 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: Polycystic Ovaries, , Prolapsed Uterus, Spontaneous Other CO FOUNDER AND DIRECTOR History: ovarian CA Musculoskeletal History: Reports: Arthritis, Back Pain, Chronic, Fracture, Neck Pain, Chronic, Osteoarthritis Other Musculoskeletal History: right wrist Neurological History: Reports: Concussion, Head Trauma, Seizure Psychiatric History: Reports: Anxiety, Depression, OCD, PTSD Endocrine/Metabolic History: Reports: Diabetes, Type II, Obesity/BMI 30+, Vitamin D Deficiency Other Endocrine/Metabolic History: no longer diabetic Hematologic History: Reports: Anemia, B12 Deficiency, Blood Transfusion(s), Iron Deficiency Oncologic (Cancer) History: Reports: Ovarian Dermatologic History: Reports: None, Cellulitis - Infectious Disease History Infectious Disease History: Reports: Chicken Pox, Measles, Mumps - Past Surgical History Head Surgeries/Procedures: Reports: None HEENT Surgical History: Reports: Cataract Surgery, Oral Surgery Other HEENT Surgeries/Procedures: wears flipper on front teeth Cardiovascular Surgical History: Reports: None, Other (See Below) Other Cardiovascular Surgeries/Procedures: angiogram Respiratory Surgical History: Reports: None GI Surgical History: Reports: Bariatric Procedure, Cholecystectomy, Colonoscopy, Hernia, Abdominal, Hernia Repair/Other, Lysis of Adhesions, Polypectomy, Small Bowel Female Surgical History: Reports: D&C, Hysterectomy, Salpingo-Oophorectomy Endocrine Surgical History: Reports: None Neurological Surgical History: Reports: None Musculoskeletal Surgical History: Reports: Other (See Below) Other Musculoskeletal Surgeries/Procedures:: right foot surgery Oncologic Surgical History: Reports: None Dermatological Surgical History: Reports: Other (See Below) Social & Family History - Family History Family Medical History: No Pertinent Family History - Tobacco Use Tobacco Use Status *Q: Never Tobacco User - Caffeine Use Caffeine Use: Reports: None - Living Situation & Occupation Living situation: Reports: , Alone ED ROS GENERAL - Review of Systems Review Of Systems: See Below Constitutional: Reports: Decreased Appetite HEENT: Reports: No Symptoms Respiratory: Reports: No Symptoms Cardiovascular: Reports: No Symptoms Endocrine: Reports: No Symptoms GI/Abdominal: Reports: Abdominal Pain, Other (pt had lower abdomanal pain. ) : Reports: No Symptoms Musculoskeletal: Reports: No Symptoms Skin: Reports: No Symptoms Neurological: Reports: No Symptoms Psychiatric: Reports: No Symptoms ED EXAM, GI/ABD - Physical Exam Exam: See Below Text/Narrative:: pt was very uncomfortable on arrival but that gradually got better and when i saw the pt she was quite comfortable. Exam Limited By: No Limitations General Appearance: Alert, Anxious, Mild Distress Ears: Normal TMs Nose: Normal Inspection Throat/Mouth: Normal Inspection Head: Atraumatic Neck: Normal Inspection Respiratory/Chest: No Respiratory Distress Cardiovascular: Regular Rate, Rhythm GI/Abdominal Exam: Non-Tender, Other (abdoman seemed very soft. ) (Female) Exam: Deferred Rectal (Female) Exam: Deferred Back Exam: Normal Inspection Extremities: Normal Inspection Neurological: Alert, Oriented, Normal Cognition Psychiatric: Anxious Course - Vital Signs Last Recorded V/S: Last Vital Signs Temp 36.5 C 02/03/21 22:19 Pulse 63 02/03/21 22:19 Resp 18 02/03/21 22:19 BP 155/81 H 02/03/21 22:19 Pulse Ox 97 02/03/21 22:19 - Orders/Labs/Meds Labs: Laboratory Tests 02/03/21 02/03/21 02/03/21 Range/Units 22:30 22:30 22:30 WBC 8.6 (4.5-11.0) K/uL RBC 3.88 (3.30-5.50) M/uL Hgb 12.2 (12.0-15.0) g/dL Hct 37.8 (36.0-48.0) % MCV 97 (80-98) fL MCH 31 (27-31) pg MCHC 32 (32-36) % Plt Count 314 (150-400) K/uL Neut % (Auto) 53.7 (36-66) % Lymph % (Auto) 34.4 (24-44) % [place] % (Auto) 9.3 H (2-6) % Eos % (Auto) 1.9 L (2-4) % Baso % (Auto) 0.7 (0-1) % Sodium 139 L (140-148) mmol/L Potassium 4.2 (3.6-5.2) mmol/L Chloride 105 (100-108) mmol/L Carbon Dioxide 24 (21-32) mmol/L Anion Gap 14.2 H (5.0-14.0) mmol/L BUN 18 (7-18) mg/dL Creatinine 0.6 (0.6-1.0) mg/dL Est Cr Clr Drug Dosing 77.88 mL/min Estimated GFR (MDRD) > 60 (>60) Glucose 113 H (74-106) mg/dL Calcium 9.2 (8.5-10.1) mg/dL Total Bilirubin 0.3 (0.2-1.0) mg/dL AST 26 (15-37) U/L ALT 54 (12-78) U/L Alkaline Phosphatase 98 (46-116) U/L C-Reactive Protein 0.05 (0.0-0.3) mg/dL Total Protein 7.0 (6.4-8.2) g/dL Albumin 3.9 (3.4-5.0) g/dL Globulin 3.1 (2.3-3.5) g/dL Albumin/Globulin Ratio 1.3 (1.2-2.2) Urine Color (YELLOW) Urine Appearance (CLEAR) Urine pH (5.0-8.0) Ur Specific [place] (1.008-1.030) Urine Protein (NEGATIVE) mg/dL Urine Glucose (UA) (NEGATIVE) mg/dL Urine Ketones (NEGATIVE) mg/dL Urine Occult Blood (NEGATIVE) Urine Nitrite (NEGATIVE) Urine Bilirubin (NEGATIVE) Urine Urobilinogen (0.2-1.0) EU/dL Ur Leukocyte Esterase (NEGATIVE) Urine RBC (0-5) Urine WBC (0-5) Ur Epithelial Cells Amorphous Sediment Urine Bacteria Urine Mucus 02/03/21 Range/Units 23:47 WBC (4.5-11.0) K/uL RBC (3.30-5.50) M/uL Hgb (12.0-15.0) g/dL Hct (36.0-48.0) % MCV (80-98) fL MCH (27-31) pg MCHC (32-36) % Plt Count (150-400) K/uL Neut % (Auto) (36-66) % Lymph % (Auto) (24-44) % [place] % (Auto) (2-6) % Eos % (Auto) (2-4) % Baso % (Auto) (0-1) % Sodium (140-148) mmol/L Potassium (3.6-5.2) mmol/L Chloride (100-108) mmol/L Carbon Dioxide (21-32) mmol/L Anion Gap (5.0-14.0) mmol/L BUN (7-18) mg/dL Creatinine (0.6-1.0) mg/dL Est Cr Clr Drug Dosing mL/min Estimated GFR (MDRD) (>60) Glucose (74-106) mg/dL Calcium (8.5-10.1) mg/dL Total Bilirubin (0.2-1.0) mg/dL AST (15-37) U/L ALT (12-78) U/L Alkaline Phosphatase (46-116) U/L C-Reactive Protein (0.0-0.3) mg/dL Total Protein (6.4-8.2) g/dL Albumin (3.4-5.0) g/dL Globulin (2.3-3.5) g/dL Albumin/Globulin Ratio (1.2-2.2) Urine Color Yellow (YELLOW) Urine Appearance Clear (CLEAR) Urine pH 5.5 (5.0-8.0) Ur Specific [place] 1.020 (1.008-1.030) Urine Protein Negative (NEGATIVE) mg/dL Urine Glucose (UA) Negative (NEGATIVE) mg/dL Urine Ketones Negative (NEGATIVE) mg/dL Urine Occult Blood Negative (NEGATIVE) Urine Nitrite Negative (NEGATIVE) Urine Bilirubin Negative (NEGATIVE) Urine Urobilinogen 0.2 (0.2-1.0) EU/dL Ur Leukocyte Esterase Negative (NEGATIVE) Urine RBC 0-5 (0-5) Urine WBC 0-5 (0-5) Ur Epithelial Cells Not seen Amorphous Sediment Urine Bacteria Rare Urine Mucus Not seen Meds: Medications Discontinued Medications Generic Name Dose Route Start Last Admin Trade Name Freq PRN Reason Stop Dose Admin Sodium Chloride 77 mls @ 3.5 mls/sec 02/04/21 00:10 02/04/21 00:25 Normal Saline IV 02/04/21 00:11 3.5 mls/sec ASDIRECTED STA Administration Iopamidol 500 ml 02/04/21 00:10 02/04/21 00:25 Iopamidol 612 Mg/Ml 500 Ml Multipack Bottle IV 02/04/21 00:11 100 ml ONETIME STA Administration - Re-Assessments/Exams Free Text/Narrative Re-Assessment/Exam: 02/04/21 01:19 pt did have normal lab work. The cat scan showed constipation. there is mild dilation at the small bowel anastomosis. I feel this is a post surgical change Departure - Departure Time of Disposition: 01:15 Disposition: Home, Self-Care 01 Condition: Fair Clinical Impression: Constipation, Dilation of small bowel anastomosis - Discharge Information Referrals: Josefina Jim MD [Primary Care Provider] - Forms: ED Department Discharge Care Plan Goals: use miralax for a good bowel clean out, push fluids, rtc if pain should reoccur, continue the workup for the fistula. Sepsis Event Note (ED) - Evaluation Sepsis Screening Result: No Definite Risk - Focused Exam Vital Signs: Vital Signs Temp Pulse Resp BP Pulse Ox 02/03/21 22:19 36.5 C 63 18 155/81 H 97 02/03/21 22:17 36.5 C 63 18 155/81 H 97
[2021-02-04] MEDS ORDERED: Iopamidol 612 MG/ML 500 ML Multipack Bottle IV STA (00:10)
--- NOTE | 2021-02-04 01:07 | CRLCT ---
For Patients: As a result of the Century Cures Act, medical imaging exams and procedure reports are released immediately into your electronic medical record. You may view this report before your referring provider. If you have questions, please contact your health care provider. INDICATION: Lower abdominal pain TECHNIQUE: Axial images were obtained from the diaphragm to the pubic symphysis. Reformats were obtained in the coronal and sagittal plane. IV Contrast: 100 cc Isovue-300 Oral Contrast: None COMPARISON: None. FINDINGS: Lower chest: Unremarkable. Liver: Unremarkable. Normal in size and attenuation. No masses. Gallbladder and bile ducts: Status post cholecystectomy. Spleen: Unremarkable. Normal in size without mass. Pancreas: Unremarkable. No mass or inflammation. Adrenal glands: Calcification within the left adrenal gland suggesting prior hemorrhage or infection. Kidneys: Symmetric renal enhancement without hydronephrosis. Subcentimeter hypodense lesions in the left kidney which is too small for characterization. Visually this likely represents a renal cyst. Vasculature: Atherosclerosis without abdominal aortic aneurysm. Splenic artery aneurysm measuring 8 millimeters. GI tract: Status post gastric bypass. Status post ventral hernia repair. Dilated loop of small bowel near the small bowel anastomosis with the remainder of the small bowel decompressed appendix unremarkable. Large amount of stool noted within the colon. Colonic diverticulosis. Pelvis: Status post hysterectomy. Bones: Bilateral hip osteoarthritis. 6 millimeter anterolisthesis L4-5. IMPRESSION: 1. Status post gastric bypass with dilated small bowel near the small bowel anastomosis differential diagnosis includes postsurgical changes, enteritis or low-grade small bowel obstruction. 2. Colonic diverticulosis without evidence of diverticulitis. Large amount of stool noted within the colon. Please note that all CT scans at this facility use dose modulation, iterative reconstruction, and/or weight-based dosing when appropriate to reduce radiation dose to as low as reasonably achievable. Dictated by Luis Carlos Zuñiga MD @ 02/04/2021 1:06:09 AM (Electronically Signed)
== END 2021-02-04 01:44 | disposition home or self-care (01) ==
LOC: JP.ED 20:04
DX: K59.00 Constipation, unspecified (principal); K63.89 Other specified diseases of intestine; E78.00 Pure hypercholesterolemia, unspecified; I10 Essential (primary) hypertension; E11.9 Type 2 diabetes mellitus without complications; E66.9 Obesity, unspecified; Z91.030 Bee allergy status; Z88.5 Allergy status to narcotic agent; Z88.8 Allergy status to other drugs, medicaments and biological substances; Z91.048 Other nonmedicinal substance allergy status; Z88.2 Allergy status to sulfonamides; Z68.33 Body mass index [BMI] 33.0-33.9, adult; Z79.899 Other long term (current) drug therapy
CPT/HCPCS: 36415; 74177; 80053; 81001; 85025; 86140; 99284; Q9967

== ENCOUNTER 2023-04-29 12:15 | Inpatient (IN) | payer BC ==
[2023-04-29] MEDS ORDERED: fentaNYL 50 MCG/ML SDV IVPUSH ONE ×2 (12:16→14:16)
[2023-04-29] MEDS ORDERED: Sodium Chloride 0.9% 10 ML Syringe FLUSH PRN ×2 (12:16→16:01)
[2023-04-29] MEDS ORDERED: Naloxone 0.4 MG/ML SDV IVPUSH PRN (14:39)
[2023-04-29 14:45] LABS: BASOPHILS ABSOLUTE AUTO 0.05 K/uL (0.00-0.10); BASOPHILS PERCENT AUTO 0.4 % (0.1-1.3); EOSINOPHILS ABSOLUTE AUTO 0.04 K/uL (0.00-0.40); EOSINOPHILS PERCENT AUTO 0.4 % (0.0-5.4); HEMATOCRIT 36.7 % (34.3-46.0); IMMATURE GRAN ABSOLUTE AUTO 0.06 K/uL (0.00-0.23); IMMATURE GRAN PERCENT AUTO 0.5 % (0.0-0.7); LYMPHOCYTES ABSOLUTE AUTO 1.26 K/uL (0.8-3.3); LYMPHOCYTES PERCENT AUTO 11.3 % (11.4-47.7); MEAN CORPUSCULAR HEMOGLOBIN 32.8 pg (31.6-35.5); MEAN CORPUSCULAR HGB CONC 32.7 g/dL (31.6-35.5); MEAN CORPUSCULAR VOLUME 100.3 fL (81.4-99.0); MONOCYTES ABSOLUTE AUTO 0.56 K/uL (0.20-0.90); NEUTROPHILS ABSOLUTE AUTO 9.19 K/uL (1.0-7.6); NEUTROPHILS PERCENT AUTO 82.4 % (40.0-78.1); PLATELET COUNT,PLT 294 K/uL (130-375); RED BLOOD CELL COUNT 3.66 M/uL (3.77-5.24); WHITE BLOOD CELL COUNT,WBC 11.2 K/uL (3.2-11.0)
[2023-04-29 15:03] LABS: CALCIUM 8.7 mg/dL (8.5-10.1); CREATININE 0.6 mg/dL (0.6-1.0); EST CRCL DRUG DOSING (CG) 79.39 mL/min; POTASSIUM,K 4.2 mmol/L (3.6-5.2)
[2023-04-29 15:07] LABS: ANION GAP 13.2 mmol/L (5.0-14.0)
[2023-04-29 15:24] LABS: INFLUENZA A NAA NEGATIVE (NEGATIVE); INFLUENZA B NAA NEGATIVE (NEGATIVE); RESPIRATORY SYNCYTIAL VIR NAA NEGATIVE (NEGATIVE)
[2023-04-29 15:26] LABS: CORONAVIRUS COVID-19 NAA POSITIVE (NEGATIVE)
[2023-04-29] MEDS ORDERED: oxyCODONE 5 MG Tab PO PRN (16:01)
[2023-04-29] MEDS ORDERED: Ondansetron 4 MG/2 ML SDV IV PRN (16:01)
[2023-04-29] MEDS ORDERED: Sodium Chloride 0.9% 1,000 ML IV SCH (16:01)
[2023-04-29] MEDS ORDERED: Non-Formulary Medication 1 Each (Estradiol [Estrace 0.01% Vaginal Crm] 42.5 GM Tube) VAG SCH (16:01)
[2023-04-29] MEDS ORDERED: Diclofenac Sodium 1% Gel 100 GM Tube TOP PRN (16:01)
[2023-04-29] MEDS ORDERED: Enoxaparin 40 MG/0.4 ML Syringe SUBCUT SCH (16:30)
[2023-04-29] MEDS: Acetaminophen 325 MG Tab PO PRN ×2 (16:57→21:24)
[2023-04-29] MEDS ORDERED: fentaNYL 50 MCG/ML SDV IVPUSH PRN (18:00)
[2023-04-29] MEDS: fentaNYL 50 MCG/ML SDV IVPUSH PRN (20:07)
[2023-04-29] MEDS: Calcium Carbonate 500 MG Tab.Chew PO SCH (20:11)
[2023-04-29] MEDS: Cholecalciferol (Vitamin D3) 25 MCG Tab PO SCH (20:11)
[2023-04-29] MEDS: Sennosides/Docusate Sodium 50-8.6 MG Tab PO SCH (20:11)
[2023-04-29] MEDS: Sertraline 50 MG Tab PO SCH (20:12)
[2023-04-29] MEDS ORDERED: CHOLECALCIFEROL 4000 UNIT PO SCH (21:00)
[2023-04-29] MEDS ORDERED: [UNRECOGNIZED DRUG - OTHER] PO SCH (21:00)
[2023-04-29] MEDS ORDERED: Non-Formulary Medication 1 Each (Sertraline [Zoloft] 100 MG Tablet) PO SCH (21:00)
[2023-04-29] MEDS ORDERED: CALCIUM 500 MG PO SCH (21:00)
[2023-04-29] MEDS: oxyCODONE 5 MG Tab PO PRN (21:23)
[2023-04-30] MEDS: fentaNYL 50 MCG/ML SDV IVPUSH PRN ×4 (00:23→13:08)
[2023-04-30] MEDS ORDERED: Melatonin 3 MG Tab PO PRN (00:41)
[2023-04-30] MEDS: Acetaminophen 325 MG Tab PO PRN ×3 (01:29→17:56)
[2023-04-30] MEDS: oxyCODONE 5 MG Tab PO PRN ×6 (01:30→22:52)
[2023-04-30 05:11] LABS: HEMATOCRIT 35.3 % (34.3-46.0); HEMOGLOBIN 11.7 g/dL (11.2-15.5); MEAN CORPUSCULAR HEMOGLOBIN 32.8 pg (31.6-35.5); MEAN CORPUSCULAR HGB CONC 33.1 g/dL (31.6-35.5); MEAN CORPUSCULAR VOLUME 98.9 fL (81.4-99.0); RED BLOOD CELL COUNT 3.57 M/uL (3.77-5.24); WHITE BLOOD CELL COUNT,WBC 10.6 K/uL (3.2-11.0)
[2023-04-30 05:29] LABS: CALCIUM 8.2 mg/dL (8.5-10.1); CREATININE 0.6 mg/dL (0.6-1.0); EST CRCL DRUG DOSING (CG) 79.36 mL/min; MAGNESIUM 1.5 mg/dL (1.8-2.4); POTASSIUM,K 3.6 mmol/L (3.6-5.2)
[2023-04-30 05:37] LABS: ANION GAP 11.6 mmol/L (5.0-14.0)
[2023-04-30] MEDS: Magnesium Sulfate/Water 2 GM in Premix Bag 1 BAG IV SCH ×2 (08:47→15:37)
[2023-04-30] MEDS: Calcium Carbonate 500 MG Tab.Chew PO SCH ×2 (08:49→20:56)
[2023-04-30] MEDS: Aspirin 81 MG Tab.EC PO SCH (08:49)
[2023-04-30] MEDS: Cholecalciferol (Vitamin D3) 25 MCG Tab PO SCH ×2 (08:52→20:56)
[2023-04-30] MEDS: Sennosides/Docusate Sodium 50-8.6 MG Tab PO SCH ×2 (08:52→20:56)
[2023-04-30] MEDS: Sertraline 50 MG Tab PO SCH ×2 (08:52→20:56)
[2023-04-30] MEDS ORDERED: Magnesium Oxide 400 MG Tab PO SCH (09:00)
[2023-04-30] MEDS: Enoxaparin 30 MG/0.3 ML Syringe SUBCUT SCH ×2 (12:32→21:00)
[2023-04-30] MEDS: Cyclobenzaprine 10 MG Tab PO PRN (22:53)
[2023-05-01] MEDS: Acetaminophen 325 MG Tab PO PRN ×3 (05:55→22:51)
[2023-05-01] MEDS: oxyCODONE 5 MG Tab PO PRN ×3 (05:55→22:50)
[2023-05-01] MEDS: Calcium Carbonate 500 MG Tab.Chew PO SCH ×2 (08:12→20:18)
[2023-05-01] MEDS: Aspirin 81 MG Tab.EC PO SCH (08:12)
[2023-05-01] MEDS: Sennosides/Docusate Sodium 50-8.6 MG Tab PO SCH ×2 (08:12→20:17)
[2023-05-01] MEDS: Cholecalciferol (Vitamin D3) 25 MCG Tab PO SCH ×2 (08:12→20:17)
[2023-05-01] MEDS: Sertraline 50 MG Tab PO SCH ×2 (08:12→20:17)
[2023-05-01] MEDS: Enoxaparin 30 MG/0.3 ML Syringe SUBCUT SCH ×3 (09:27→21:23)
[2023-05-01] MEDS: Polyethylene Glycol 3350 Powder 17 GM Packet PO PRN (17:55)
[2023-05-01] MEDS: Cyclobenzaprine 10 MG Tab PO PRN (20:17)
[2023-05-02] MEDS: Acetaminophen 325 MG Tab PO PRN ×3 (05:28→19:39)
[2023-05-02] MEDS: oxyCODONE 5 MG Tab PO PRN ×3 (05:28→19:39)
[2023-05-02] MEDS: Cyclobenzaprine 10 MG Tab PO PRN (09:05)
[2023-05-02] MEDS: Sertraline 50 MG Tab PO SCH ×2 (09:06→22:01)
[2023-05-02] MEDS: Calcium Carbonate 500 MG Tab.Chew PO SCH ×2 (09:06→22:01)
[2023-05-02] MEDS: Sennosides/Docusate Sodium 50-8.6 MG Tab PO SCH ×2 (09:06→22:01)
[2023-05-02] MEDS: Aspirin 81 MG Tab.EC PO SCH (09:06)
[2023-05-02] MEDS: Cholecalciferol (Vitamin D3) 25 MCG Tab PO SCH ×2 (09:06→22:00)
[2023-05-02] MEDS: Enoxaparin 30 MG/0.3 ML Syringe SUBCUT SCH ×2 (09:07→22:08)
[2023-05-02] MEDS ORDERED: Dexamethasone 4 MG/ML SDV ONE (10:55)
[2023-05-02] MEDS ORDERED: Propofol 200 MG/20 ML SDV ONE ×2 (10:55→17:14)
[2023-05-02] MEDS ORDERED: Succinylcholine 200 MG/10 ML MDV ONE (10:55)
[2023-05-02] MEDS ORDERED: fentaNYL 250 MCG/5 ML SDV ONE (10:55)
[2023-05-02] MEDS ORDERED: Rocuronium 50 MG/5 ML Vial ONE (10:55)
[2023-05-02] MEDS ORDERED: Ondansetron 4 MG/2 ML SDV ONE (10:55)
[2023-05-02] MEDS ORDERED: Glycopyrrolate 0.2 MG/ML 5 ML MDV ONE (10:55)
[2023-05-02] MEDS ORDERED: Neostigmine Methylsulfate 10 MG/10 ML MDV ONE (10:55)
[2023-05-02] MEDS ORDERED: Bupivacaine 0.5% 50 ML MDV ONE (13:09)
[2023-05-02] MEDS ORDERED: ceFAZolin 2 GM in Premix Bag 1 BAG IV ONE (15:30)
[2023-05-02] MEDS ORDERED: Labetalol 20 MG/4 ML Syringe IVPUSH ONE (18:24)
[2023-05-03] MEDS: Acetaminophen 325 MG Tab PO PRN ×5 (00:09→18:06)
[2023-05-03] MEDS: oxyCODONE 5 MG Tab PO PRN ×6 (00:09→23:04)
[2023-05-03] MEDS: Cyclobenzaprine 10 MG Tab PO PRN (08:05)
[2023-05-03] MEDS: Sennosides/Docusate Sodium 50-8.6 MG Tab PO SCH ×3 (09:29→20:04)
[2023-05-03] MEDS: Aspirin 81 MG Tab.EC PO SCH (09:29)
[2023-05-03] MEDS: Calcium Carbonate 500 MG Tab.Chew PO SCH ×3 (09:29→20:04)
[2023-05-03] MEDS: Cholecalciferol (Vitamin D3) 25 MCG Tab PO SCH ×3 (09:29→20:05)
[2023-05-03] MEDS: Sertraline 50 MG Tab PO SCH ×3 (09:29→20:05)
[2023-05-03] MEDS: Enoxaparin 30 MG/0.3 ML Syringe SUBCUT SCH ×3 (09:30→21:54)
[2023-05-03] MEDS: Polyethylene Glycol 3350 Powder 17 GM Packet PO PRN (13:33)
[2023-05-04] MEDS: oxyCODONE 5 MG Tab PO PRN ×2 (05:29→10:58)
[2023-05-04] MEDS: Cholecalciferol (Vitamin D3) 25 MCG Tab PO SCH ×2 (08:10→21:06)
[2023-05-04] MEDS: Calcium Carbonate 500 MG Tab.Chew PO SCH ×2 (08:11→21:06)
[2023-05-04] MEDS: Aspirin 81 MG Tab.EC PO SCH (08:11)
[2023-05-04] MEDS: Sennosides/Docusate Sodium 50-8.6 MG Tab PO SCH ×2 (08:11→21:06)
[2023-05-04] MEDS: Sertraline 50 MG Tab PO SCH ×2 (08:11→21:07)
[2023-05-04] MEDS: Enoxaparin 30 MG/0.3 ML Syringe SUBCUT SCH ×3 (08:12→21:07)
[2023-05-04] MEDS: Acetaminophen/oxyCODONE 325-10 MG Tab PO PRN (18:40)
[2023-05-04] MEDS: ESTRIOL VAG SCH (21:06)
[2023-05-05] MEDS: Cholecalciferol (Vitamin D3) 25 MCG Tab PO SCH ×2 (08:13→22:02)
[2023-05-05] MEDS: Aspirin 81 MG Tab.EC PO SCH (08:14)
[2023-05-05] MEDS: Calcium Carbonate 500 MG Tab.Chew PO SCH ×2 (08:14→22:02)
[2023-05-05] MEDS: Sertraline 50 MG Tab PO SCH ×2 (08:14→22:01)
[2023-05-05] MEDS: Sennosides/Docusate Sodium 50-8.6 MG Tab PO SCH ×2 (08:14→22:01)
[2023-05-05] MEDS: Enoxaparin 30 MG/0.3 ML Syringe SUBCUT SCH (10:51)
[2023-05-05] MEDS: Acetaminophen/oxyCODONE 325-10 MG Tab PO PRN (13:38)
[2023-05-05] MEDS: Cyclobenzaprine 10 MG Tab PO PRN (17:57)
[2023-05-06] MEDS: Acetaminophen/oxyCODONE 325-10 MG Tab PO PRN ×6 (00:15→23:38)
[2023-05-06 04:49] LABS: HEMATOCRIT 32.5 % (34.3-46.0); HEMOGLOBIN 10.3 g/dL (11.2-15.5); MEAN CORPUSCULAR HEMOGLOBIN 31.9 pg (31.6-35.5); MEAN CORPUSCULAR HGB CONC 31.7 g/dL (31.6-35.5); MEAN CORPUSCULAR VOLUME 100.6 fL (81.4-99.0); RED BLOOD CELL COUNT 3.23 M/uL (3.77-5.24); WHITE BLOOD CELL COUNT,WBC 6.8 K/uL (3.2-11.0)
[2023-05-06 05:51] LABS: ANION GAP 11.1 mmol/L (5.0-14.0); CALCIUM 8.2 mg/dL (8.5-10.1); CREATININE 0.6 mg/dL (0.6-1.0); EST CRCL DRUG DOSING (CG) 79.36 mL/min; POTASSIUM,K 4.1 mmol/L (3.6-5.2)
[2023-05-06] MEDS: Calcium Carbonate 500 MG Tab.Chew PO SCH ×2 (08:29→21:57)
[2023-05-06] MEDS: Sennosides/Docusate Sodium 50-8.6 MG Tab PO SCH ×2 (08:29→21:58)
[2023-05-06] MEDS: Enoxaparin 40 MG/0.4 ML Syringe SUBCUT SCH (08:29)
[2023-05-06] MEDS: Sertraline 50 MG Tab PO SCH ×2 (08:30→21:58)
[2023-05-06] MEDS: Aspirin 81 MG Tab.EC PO SCH (08:30)
[2023-05-06] MEDS: Cholecalciferol (Vitamin D3) 25 MCG Tab PO SCH ×2 (08:30→21:57)
[2023-05-06] MEDS: Cyclobenzaprine 10 MG Tab PO PRN (08:38)
[2023-05-06] MEDS: ESTRIOL VAG SCH (22:01)
[2023-05-07] MEDS: Acetaminophen/oxyCODONE 325-10 MG Tab PO PRN ×5 (04:49→22:37)
[2023-05-07] MEDS: Cholecalciferol (Vitamin D3) 25 MCG Tab PO SCH ×2 (08:16→21:10)
[2023-05-07] MEDS: Aspirin 81 MG Tab.EC PO SCH (08:16)
[2023-05-07] MEDS: Enoxaparin 40 MG/0.4 ML Syringe SUBCUT SCH (08:16)
[2023-05-07] MEDS: Sertraline 50 MG Tab PO SCH ×2 (08:16→21:10)
[2023-05-07] MEDS: Calcium Carbonate 500 MG Tab.Chew PO SCH ×2 (08:17→21:10)
[2023-05-07] MEDS: Sennosides/Docusate Sodium 50-8.6 MG Tab PO SCH ×2 (08:17→21:10)
[2023-05-07] MEDS: Cyclobenzaprine 10 MG Tab PO PRN ×2 (14:13→22:36)
[2023-05-08] MEDS: Acetaminophen/oxyCODONE 325-10 MG Tab PO PRN ×5 (03:23→23:46)
[2023-05-08] MEDS: Enoxaparin 40 MG/0.4 ML Syringe SUBCUT SCH (08:48)
[2023-05-08] MEDS: Calcium Carbonate 500 MG Tab.Chew PO SCH ×2 (08:48→20:06)
[2023-05-08] MEDS: Aspirin 81 MG Tab.EC PO SCH (08:48)
[2023-05-08] MEDS: Sennosides/Docusate Sodium 50-8.6 MG Tab PO SCH ×2 (08:48→20:06)
[2023-05-08] MEDS: Sertraline 50 MG Tab PO SCH ×2 (08:49→20:06)
[2023-05-08] MEDS: Cholecalciferol (Vitamin D3) 25 MCG Tab PO SCH ×2 (08:49→20:06)
[2023-05-08] MEDS: ESTRIOL VAG SCH (20:06)
[2023-05-09] MEDS: Cyclobenzaprine 10 MG Tab PO PRN (02:31)
[2023-05-09] MEDS: Acetaminophen/oxyCODONE 325-10 MG Tab PO PRN ×4 (05:46→22:53)
[2023-05-09] MEDS: Enoxaparin 40 MG/0.4 ML Syringe SUBCUT SCH (08:15)
[2023-05-09] MEDS: Calcium Carbonate 500 MG Tab.Chew PO SCH ×2 (08:15→20:07)
[2023-05-09] MEDS: Cholecalciferol (Vitamin D3) 25 MCG Tab PO SCH ×2 (08:15→20:07)
[2023-05-09] MEDS: Aspirin 81 MG Tab.EC PO SCH (08:15)
[2023-05-09] MEDS: Sennosides/Docusate Sodium 50-8.6 MG Tab PO SCH ×2 (08:15→20:07)
[2023-05-09] MEDS: Sertraline 50 MG Tab PO SCH ×2 (08:15→20:07)
[2023-05-10] MEDS: Acetaminophen/oxyCODONE 325-10 MG Tab PO PRN ×3 (07:54→20:48)
[2023-05-10] MEDS: Cholecalciferol (Vitamin D3) 25 MCG Tab PO SCH ×2 (08:05→20:19)
[2023-05-10] MEDS: Calcium Carbonate 500 MG Tab.Chew PO SCH ×2 (08:05→20:20)
[2023-05-10] MEDS: Sennosides/Docusate Sodium 50-8.6 MG Tab PO SCH ×2 (08:05→20:19)
[2023-05-10] MEDS: Sertraline 50 MG Tab PO SCH ×2 (08:05→20:20)
[2023-05-10] MEDS: Aspirin 81 MG Tab.EC PO SCH (08:05)
[2023-05-10] MEDS: Enoxaparin 40 MG/0.4 ML Syringe SUBCUT SCH (08:06)
[2023-05-10] MEDS: Cyclobenzaprine 10 MG Tab PO PRN (20:25)
[2023-05-11] MEDS: Cyclobenzaprine 10 MG Tab PO PRN ×2 (07:14→22:18)
[2023-05-11] MEDS: Calcium Carbonate 500 MG Tab.Chew PO SCH ×2 (08:15→20:09)
[2023-05-11] MEDS: Cholecalciferol (Vitamin D3) 25 MCG Tab PO SCH ×2 (08:15→20:09)
[2023-05-11] MEDS: Sertraline 50 MG Tab PO SCH ×2 (08:15→20:09)
[2023-05-11] MEDS: Aspirin 81 MG Tab.EC PO SCH (08:15)
[2023-05-11] MEDS: Sennosides/Docusate Sodium 50-8.6 MG Tab PO SCH ×2 (08:15→20:09)
[2023-05-11] MEDS: Enoxaparin 40 MG/0.4 ML Syringe SUBCUT SCH (08:15)
[2023-05-11] MEDS: Acetaminophen/oxyCODONE 325-10 MG Tab PO PRN ×4 (08:24→22:17)
[2023-05-11] MEDS: ESTRIOL VAG SCH (20:10)
[2023-05-12] MEDS: Acetaminophen/oxyCODONE 325-10 MG Tab PO PRN ×2 (04:44→11:58)
[2023-05-12 04:46] VITALS: BP 146/54; PULSE 62
[2023-05-12] MEDS: Sennosides/Docusate Sodium 50-8.6 MG Tab PO SCH (09:55)
[2023-05-12] MEDS: Sertraline 50 MG Tab PO SCH (09:55)
[2023-05-12] MEDS: Calcium Carbonate 500 MG Tab.Chew PO SCH (09:55)
[2023-05-12] MEDS: Aspirin 81 MG Tab.EC PO SCH (09:56)
[2023-05-12] MEDS: Cholecalciferol (Vitamin D3) 25 MCG Tab PO SCH (09:56)
[2023-05-12] MEDS: Enoxaparin 40 MG/0.4 ML Syringe SUBCUT SCH (09:56)
== END 2023-05-12 13:17 | DRG 308 ==
LOC: JP.ED 12:15 → JP.MS 14:31
PROVIDERS: ADMIT Hospitalist; ATTEND Internal Medicine
PROC: 8E0ZXY6 Isolation (ICD-10-PCS; 2023-04-29)
PROC: 0QSB34Z Reposition Right Lower Femur with Internal Fixation Device, Percutaneous Approach (ICD-10-PCS; principal; 2023-05-02 14:00)
DX: S82.61XA Displaced fracture of lateral malleolus of right fibula, initial encounter for closed fracture (principal); U07.1 COVID-19; S72.424A Nondisplaced fracture of lateral condyle of right femur, initial encounter for closed fracture; E78.00 Pure hypercholesterolemia, unspecified; I10 Essential (primary) hypertension; M19.90 Unspecified osteoarthritis, unspecified site; G89.29 Other chronic pain; M54.2 Cervicalgia; F41.9 Anxiety disorder, unspecified; F32.A Depression, unspecified; S82.001A Unspecified fracture of right patella, initial encounter for closed fracture; E66.9 Obesity, unspecified; E11.9 Type 2 diabetes mellitus without complications; Z68.30 Body mass index [BMI] 30.0-30.9, adult; Z91.030 Bee allergy status; Z88.8 Allergy status to other drugs, medicaments and biological substances; Z88.2 Allergy status to sulfonamides; Z79.899 Other long term (current) drug therapy; Z79.82 Long term (current) use of aspirin; Z85.43 Personal history of malignant neoplasm of ovary; Z98.49 Cataract extraction status, unspecified eye; Z98.890 Other specified postprocedural states; Z90.49 Acquired absence of other specified parts of digestive tract; Z90.710 Acquired absence of both cervix and uterus; Z90.722 Acquired absence of ovaries, bilateral; Z90.79 Acquired absence of other genital organ(s); Z98.84 Bariatric surgery status; W00.0XXA Fall on same level due to ice and snow, initial encounter
CPT/HCPCS: 0241U; 36415; 73560-26-RT; 73560-RT; 73562-26-RT; 73562-RT; 73610-26-RT; 73610-RT; 73700-26-RT; 73700-RT; 76000; 76377; 80048; 83735; 85025; 85027; 85049; 96374; 96376; 97110-GP; 97116-GP; 97161-GP; 97165-GO; 97530-GP; 99222; 99231; 99232; 99238; 99284; 99285-25; A9270-GY; C1713; C1769; J0330; J0690; J1100; J1650; J1920; J2405; J2704; J2710; J3010; J3475; J3490; J7030

== ENCOUNTER 2023-10-12 06:27 | Day surgery (SDC) | payer BC ==
[2023-10-12] MEDS: Nozin Nasal Sanitizer NASBOTH ONE (06:53)
[2023-10-12 06:55] LABS: HEMATOCRIT 37.3 % (34.3-46.0); HEMOGLOBIN 12.3 g/dL (11.2-15.5); MEAN CORPUSCULAR HEMOGLOBIN 32.5 pg (31.6-35.5); MEAN CORPUSCULAR VOLUME 98.7 fL (81.4-99.0); PLATELET COUNT,PLT 247 K/uL (130-375); RED BLOOD CELL COUNT 3.78 M/uL (3.77-5.24); WHITE BLOOD CELL COUNT,WBC 6.8 K/uL (3.2-11.0)
[2023-10-12 06:56] LABS: BASOPHILS ABSOLUTE AUTO 0.05 K/uL (0.00-0.10); BASOPHILS PERCENT AUTO 0.7 % (0.1-1.3); EOSINOPHILS ABSOLUTE AUTO 0.13 K/uL (0.00-0.40); EOSINOPHILS PERCENT AUTO 1.9 % (0.0-5.4); IMMATURE GRAN ABSOLUTE AUTO 0.02 K/uL (0.00-0.23); IMMATURE GRAN PERCENT AUTO 0.3 % (0.0-0.7); LYMPHOCYTES ABSOLUTE AUTO 2.53 K/uL (0.8-3.3); LYMPHOCYTES PERCENT AUTO 37.2 % (11.4-47.7); MONOCYTES ABSOLUTE AUTO 0.66 K/uL (0.20-0.90); MONOCYTES PERCENT AUTO 9.7 % (3.3-12.6); NEUTROPHILS ABSOLUTE AUTO 3.41 K/uL (1.0-7.6); NEUTROPHILS PERCENT AUTO 50.2 % (40.0-78.1)
[2023-10-12 07:14] LABS: ANION GAP 12.2 mmol/L (5.0-14.0); CREATININE 0.7 mg/dL (0.6-1.0); EST CRCL DRUG DOSING (CG) 68.05 mL/min; POTASSIUM,K 4.2 mmol/L (3.6-5.2)
[2023-10-12 07:15] LABS: CALCIUM 9.6 mg/dL (8.5-10.1)
[2023-10-12] MEDS ORDERED: fentaNYL 100 MCG/2 ML SDV ONE (07:25)
[2023-10-12] MEDS ORDERED: Propofol 200 MG/20 ML SDV ONE (07:26)
[2023-10-12] MEDS ORDERED: Midazolam 1 MG/ML 2 ML SDV ONE (07:26)
[2023-10-12] MEDS ORDERED: Dexamethasone 4 MG/ML SDV ONE (07:27)
[2023-10-12] MEDS ORDERED: Ondansetron 4 MG/2 ML SDV ONE (07:27)
[2023-10-12] MEDS: Lactated Ringers 1,000 ML IV SCH (07:41)
[2023-10-12] MEDS: ceFAZolin 1 GM in Premix Bag 1 BAG IV ONE (07:45)
[2023-10-12] MEDS: Bupivacaine 0.5% 50 ML MDV ONE (08:15)
[2023-10-12 09:34] VITALS: BP 132/60; PULSE 57
== END 2023-10-12 10:13 | disposition home or self-care (01) ==
LOC: JP.SDS 06:27
PROVIDERS: ATTEND Specialist
DX: T84.84XA Pain due to internal orthopedic prosthetic devices, implants and grafts, initial encounter (principal); X58.XXXA Exposure to other specified factors, initial encounter
CPT/HCPCS: 01360; 20680; 36415; 80048; 85025; A9270; J0665; J0689; J1100; J2250; J2405; J2704; J3010; J7120